=== PATIENT | female | born 1960 | race Caucasian/White ===

== ENCOUNTER 2016-10-14 23:08 | Emergency (ER) | payer MEDICAID ==
[~2016-10-14] VITALS: Ht 154.9 cm; Wt 77.1 kg
[2016-10-14 23:29] VITALS: BP 140/77
--- NOTE | 2016-10-14 23:30 | NUR ---
TO ER BED 5
--- NOTE | 2016-10-15 00:07 | NUR ---
55Y/F PT. PRESENTS TO ED WITH C/O DIZZINESS X 1 DAY. PT. HX. DM, HTN. AAO X4, AMBULATORY WITH STEADY GAIT, GCS 15. RESPIRATIONS ROOM AIR EVEN AND UNLABORED. C/O DIZZINESS, NO S/SX OF DISTRESS AT THIS TIME. VSS.
--- NOTE | 2016-10-15 00:35 | NUR ---
Patient being evaluated by DR. GARRIDO at bedside.
[2016-10-15] MEDS ORDERED: ONDANSETRON 4 MG ODT PO ONE (00:40)
[2016-10-15 01:01] VITALS: BP 122/66
--- NOTE | 2016-10-15 01:01 | NUR ---
Patient discharged with v/s stable. Written and verbal after care instructions given and explained. Patient alert, oriented and verbalized understanding of instructions. Ambulatory with steady gait. All questions addressed prior to discharge. ID band removed. Patient advised to follow up with PMD. Rx of ZOFRAN 8 MG given. Patient educated on indication of medication including possible reaction and side effects. Opportunity to ask questions provided and answered.
== END 2016-10-15 01:01 | disposition home or self-care (01) ==
LOC: MED 23:08
DX: R42 Dizziness and giddiness (principal); R11.0 Nausea; E86.0 Dehydration; E11.9 Type 2 diabetes mellitus without complications
CPT/HCPCS: 81002; 81025; 82948; 99283; S0119